=== PATIENT | female | born 1980 | race Two or more races ===

== ENCOUNTER 2016-10-31 11:53 | Emergency (ER) | payer OTHER ==
[2016-10-31] MEDS ORDERED: NO HOME MEDICATION XX (12:10)
[2016-10-31] MEDS ORDERED: NORCO 5-325 TA1 EACH PO (13:13)
== END 2016-10-31 13:27 ==
LOC: EDMED 11:53
DX: T23.261A Burn of second degree of back of right hand, initial encounter (principal); T31.0 Burns involving less than 10% of body surface; X19.XXXA Contact with other heat and hot substances, initial encounter; Y92.69 Other specified industrial and construction area as the place of occurrence of the external cause; Y99.0 Civilian activity done for income or pay